=== PATIENT | female | born 2005 | race African-American/Black ===

== ENCOUNTER 2024-08-10 23:50 | Observation (INO) | payer MEDICAID ==
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
[2024-08-11] MEDS ORDERED: PREN-96 PO (01:09)
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
== END 2024-08-11 01:18 | disposition home or self-care (01) ==
LOC: LDRP 23:50
PROVIDERS: ADMIT Obstetrics & Gynecology; ATTEND Obstetrics & Gynecology
DX: O62.9 Abnormality of forces of labor, unspecified (principal); Z3A.29 29 weeks gestation of pregnancy; Z79.899 Other long term (current) drug therapy; Z98.890 Other specified postprocedural states
CPT/HCPCS: 59025; 76815; 81002; 94760; G0378